=== PATIENT | female | born 2000 | race Caucasian/White ===

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

== ENCOUNTER → 2019-03-13 | Outpatient (CLI) | payer OTHER ==
[~2019-03-13] MED LIST: BLISOVI FE 1-21 EACH PO; FIORICET 325 MG1 TA1 PO; SINGULAIR 110 MG/TAB PO
== END ==
LOC: COL.RAD 05:19
DX: R10.11 Right upper quadrant pain (principal)
CPT/HCPCS: A9537; J2805